=== PATIENT | female | born 1945 | race Caucasian/White ===

== ENCOUNTER → 2022-05-12 | Day surgery (SDC) | payer MEDICARE, BC ==
[~2022-05-12] MED LIST: Flumazenil 0.1 MG/ML 10 ML MDV ONE; Midazolam 1 MG/ML 2 ML SDV ONE; Propofol 200 MG/20 ML SDV ONE; fentaNYL 50 MCG/ML SDV ONE
[2022-05-12] MEDS: Lactated Ringers 1,000 ML IV SCH (10:18)
== END ==
LOC: CC.SDS 09:39
PROVIDERS: ATTEND Family Medicine
DX: C18.2 Malignant neoplasm of ascending colon (principal); D12.5 Benign neoplasm of sigmoid colon; D50.9 Iron deficiency anemia, unspecified; K29.50 Unspecified chronic gastritis without bleeding; K29.80 Duodenitis without bleeding; I48.0 Paroxysmal atrial fibrillation; I10 Essential (primary) hypertension; Z98.890 Other specified postprocedural states; Z79.01 Long term (current) use of anticoagulants; Z79.899 Other long term (current) drug therapy
CPT/HCPCS: 87081; 88305; 88341; 88342; J2250; J2704; J3010; J7120